=== PATIENT | female | born 1960 | race Caucasian/White ===

== ENCOUNTER 2017-06-08 06:14 | Inpatient (IN) ==
[~2017-06-08 06:14] MED LIST: Bacitracin 50,000 UNIT, Polymyxin B Sulfate 500,000 UNIT, Sodium Chloride IRRigation 1,... IR ONE
[2017-06-08] MEDS ORDERED: CeFAZolin Syr 2,000MG/20 ML 2,000 MG/20 ML SYRINGE IVPB ONE (06:29)
[2017-06-08] MEDS ORDERED: Lidocaine -MPF 2% 2 ML VIAL ONE (06:59)
[2017-06-08] MEDS ORDERED: Ondansetron 4 MG/2 ML VIAL ONE ×2 (06:59→10:43)
[2017-06-08] MEDS ORDERED: Dexamethasone 4 MG/ML VIAL ONE (06:59)
[2017-06-08] MEDS ORDERED: *HR* Phenylephrine 10 MG/ML VIAL ONE (06:59)
[2017-06-08] MEDS ORDERED: *HR* Succinylcholine 200 MG/10 ML VIAL IVP ONE (06:59)
[2017-06-08] MEDS ORDERED: Lidocaine -MPF 4% 5 ML AMPUL ONE (06:59)
[2017-06-08] MEDS ORDERED: *HR* Midazolam HCl 2 MG/2 ML VIAL ONE (07:02)
[2017-06-08] MEDS ORDERED: *HR* FentaNYL (PF) 100 MCG/2 ML VIAL ONE ×2 (07:02→11:07)
[2017-06-08] MEDS ORDERED: *HR* Remifentanil 2 MG VIAL IVP ONE (07:02)
[2017-06-08] MEDS ORDERED: *HR* Propofol 200 MG/20 ML VIAL IVP ONE (07:02)
[2017-06-08] MEDS ORDERED: Scopolamine Patch 1.5 MG PATCH.TD72 TD ONE (07:04)
[2017-06-08] MEDS ORDERED: Famotidine 20 MG/2 ML VIAL IVP ONE (07:04)
[2017-06-08] MEDS ORDERED: Pregabalin 75 MG CAPSULE PO ONE (07:05)
[2017-06-08] MEDS ORDERED: Acetaminophen IV 1,000 MG/100 ML INFUS..BTL IVPB ONE (07:05)
--- NOTE | 2017-06-08 07:08 | Anesthesia Evaluation PreOp ---
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 HX Other Medical History: Other (Rheumatoid Arthritis) Anesthesia History: No Prior Anesthetic Complications : No Alcohol Use: none Drug use: none Medications and Allergies Tylenol 12/13/16 [History] 3 Allergy/AdvReac Type Severity Reaction Status Date / Time No Known Allergies Allergy Verified 12/13/16 18:14 - Meds/Allergy Pre-op Review Medications Reviewed: Yes Allergies Reviewed: Yes Beta Blockers on Current Med List: No Anesthesia Results - Labs Laboratory Tests 06/02/17 06/02/17 06/02/17 08:15 08:15 08:15 Hgb 14.3 Hct 43.7 Plt Count 222 PT 9.7 INR 0.9 APTT 29.1 Sodium 139 Potassium 4.1 BUN 14 Creatinine 0.74 Anesthesia Exam O2 Sat Height 1.7 m Height 1.7 m Height 1.7 m Weight 83.915 kg Weight 83.915 kg Weight 83.915 kg O2 Sat by Pulse Oximetry 98 Vital Signs Temp Pulse Resp BP Pulse Ox 98.0 F 91 18 135/91 98 06/08/17 06:32 06/08/17 06:32 06/08/17 06:32 06/08/17 06:32 06/08/17 06:32 Height: 5'7 Weight: 185 lbs NPO (# of Hours): MN Pain Scale: 0 - HEENT Pupil (Motor): Pupils equal, EOMI Mallampati: II Denture Type: Upper: Complete Oral Opening: Greater than 3 - 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
[2017-06-08] MEDS ORDERED: Ringers Solution, Lactated 1,000 ML IVC SCH (07:15)
--- NOTE | 2017-06-08 08:17 | History & Physical Report ---
Date of Encounter: 06/08/17 Time of Encounter: 08:10 24 Hour HP Update - Instructions Instructions: If the History and Physical is less than 30 days old and was completed prior to A.M. admission and or procedure and has NOT been updated on calendar day of procedure please complete this update prior to performing procedure. - Update Patient reports changes in Medical Condition: No Changes in examination, assessment, or condition: No Changes in Medication: No Preop tests/diagnostics Reviewed: Yes Pre-Op MRSA Screen: Negative Surgery Remains Indicated: Yes Consent for Planned Operative Procedure(s) Verified: Yes - Pre-Operative Checklist Preoperative Checklist Indicated: No Prophylactic Antibiotic Ordered: Yes Home Medications Include Beta Manjeet: No Beta Manjeet Taken Today (Day of Surgery): No Beta Manjeet Taken Yesterday (Day Prior to Surgery): No Is VTE Prophylaxis Indicated?: Yes
[2017-06-08] MEDS ORDERED: *HR* Promethazine 25 MG/ML VIAL IVP PRN (08:24)
[2017-06-08] MEDS ORDERED: Dexamethasone 4 MG/ML VIAL IVP ONE (08:24)
[2017-06-08] MEDS ORDERED: Ondansetron 4 MG/2 ML VIAL IVP ONE (08:24)
[2017-06-08] MEDS ORDERED: *HR* Magnesium Sulfate 1 GM/2 ML VIAL ONE (10:31)
--- NOTE | 2017-06-08 11:07 | Orthopedic Operative Note ---
Date of procedure: 06/08/17 Pre-op diagnosis: Spondylolisthesis, lumbar stenosis Post-op diagnosis: same Operation/Findings: Posterior lumbar interbody fusion L4-L5: The patient successfully underwent general endotracheal anesthesia. The patient was given antibiotics prior to the start of the procedure. Compression boots and stockings were used for deep vein thrombosis prophylaxis. A Finney catheter was placed. Leads for neuro monitoring were placed on the upper and lower extremities. This included the cranium. The neuro monitoring personnel confirmed there were satisfactory readings prior to the start of the procedure. The patient was turned prone on the Kyel table. The back was prepped and draped in the usual sterile fashion. An incision was was marked and centered over the involved L4 and L5 levels in the mid line. The incision was deepened through the lumbar fascia. Bovie cautery and Carroll elevators were used to reflect the paraspinal musculature at the lateral extent of the transverse processes of the involved L4 and L5 levels. Diane clamps were placed over the L4 and L5 spinous processes. An intraoperative lateral fluoroscopy graft was obtained. A conversation was held between the surgeon and radiologist and both confirmed we had the correct operative levels. We then placed pedicle screws in standard fashion with the aid of fluoroscopy and anatomic landmarks. Briefly a starter awl was used. A gearshift was subsequently used to enter the rotor pilot hole via a transpedicular route into the vertebral body. The rotor pilot hole was tapped with an undersized instrument, and subsequently four 6.5 x 40 mm pedicle screws were placed bilaterally at the indicated L4 and L5 levels. The screws were tested with the aid of the neurologic monitoring staff via pedicle screw stimulation. All reading suggested there was no significant cortical wall breech. The screws were also evaluated fluoro- graphically and appeared to be in satisfactory position. We then turned our attention to the decompression portion of the procedure. We removed the supraspinous and interspinous ligaments and subsequently the insertion of the ligamentum flavum on the undersurface of the proximal L4 lamina was dislodged with a curette. We then removed the ligamentum flavum as well as undercut the L4-L5 facets at this level to decompress the lateral recesses. We also performed a L4 laminectomy. After the decompression, which was over and above that which was required to place the interbody graft, the foramen and traversing roots at this L4-L5 level were found to be free and patent. We also took part of the medial facet in order to aid in the decompression. We then protected the neural elements including the thecal sac and traversing nerve root on the right with a dural retractor. We made an annulotomy into the L4-L5 disc space and then removed entire disc material using Pituitary instruments. We trialed various size grafts after the endplates were prepared for graft insertion. A 10 x 26 enter body graft fit well within the L4-L5 disc space. We obtained some bone from the right posterior superior iliac spine through us a separate incision and combined with this with the bone which we had saved from the laminectomy portion of the procedure. This autograft bone was first placed in the anterior portion of the L4-L5 disc space and additional bone was placed within the interbody graft spacer. We then placed the interbody graft spacer obliquely across the L4-L5 disc space towards the midline while protecting the neural elements with a root retractor. When the graft was found to be in satisfactory position the steel floor pan placing supervisor was removed. We then copiously irrigated the wound. We then decorticated the L4 and L5 transverse processes as well as the facet joints of the involved L4-L5 levels to aid in the posterolateral fusion. We placed autograft bone in the lateral gutters over these regions. We then placed rods within the screw heads of the involved L4 and L5 levels and first locked the distal screws and then subsequently locked the proximal screws so as to improve and reduce the spondylolisthesis previously seen. We then closed the wound in layers with 1 Vicryl for the fascia, 2-0 Vicryl. Subcutaneous tissue, and Dermabond was used for skin closure. Sterile dressings were placed over the wound. The patient was turned supine on a hospital bed and extubated. All sponge instruments and needle counts were correct at the end of the procedure. The patient tolerated the procedure well without complications. Anesthesia: GETA Surgeon: Nick Urbina Jr Was there an acquisitions assistant present: No Estimated blood loss (cc): 150 Specimen: None Condition: stable Disposition: PACU
[2017-06-08] MEDS: *HR* HYDROmorphone (PF) 1 MG/ML SYRINGE IVP PRN ×4 (11:17→11:38)
[2017-06-08] MEDS: *HR* Labetalol 20 MG/4 ML SYRINGE IVP PRN ×2 (11:20→11:41)
[2017-06-08] MEDS: *HR* Morphine 2 MG/ML SYRINGE IVP PRN ×2 (12:05→12:15)
--- NOTE | 2017-06-08 12:36 | Anesthesia Evaluation Post Op ---
Date of Encounter: 06/08/17 Time of Encounter: 12:35 - Vital Signs Vital Signs: Vital Signs/O2 Sat/Glucose, Most Current Temp Pulse Resp BP Pulse Ox 06/08/17 12:31 95 16 130/79 95 06/08/17 12:21 94 18 129/78 94 06/08/17 12:11 98 F 95 14 123/75 95 06/08/17 12:01 94 14 137/92 95 06/08/17 11:51 91 14 125/81 95 06/08/17 11:41 98.2 F 93 20 166/114 96 06/08/17 11:31 98 20 160/119 97 06/08/17 11:21 117 20 178/98 100 06/08/17 11:11 98.3 F 115 20 156/118 100 - Lungs Lungs: Clear Ascult./Percussion - Airway Airway: Non-obstructed - Cardiovascular Regular Rate - Mental Status Mental Status: Alert & Oriented, Answers Appropriately - Pain Pain Scale: 4 - Nausea Vomiting Nausea Vomiting: Not Present - Hydration Hydration: Ice chips - Discharge PostOp Status: Transfer Patient to floor
[2017-06-08] MEDS ORDERED: Naloxone 0.4 MG/ML INJ IVP PRN (12:51)
[2017-06-08] MEDS ORDERED: Acetaminophen 325 MG TABLET PO PRN (12:51)
[2017-06-08] MEDS ORDERED: *HR* HYDROcodone/Acet 5/325 mg TABLET PO PRN (12:51)
[2017-06-08] MEDS: Ringers Solution, Lactated 1,000 ML IVC SCH ×2 (13:27→23:50)
[2017-06-08] MEDS: *HR* OxyCODONE Immed Rel 5 MG TABLET PO PRN ×3 (13:27→23:49)
[2017-06-08] MEDS: Ondansetron 4 MG/2 ML VIAL IVP PRN (14:36)
[2017-06-08] MEDS: ceFAZolin 2,000 MG in 0.9 % Sodium Chloride 100 ML IVPB SCH ×2 (15:42→23:51)
[2017-06-08] MEDS ORDERED: *HR* OxyCODONE Immed Rel 5 MG TABLET PO ONE (18:22)
[2017-06-08] MEDS: *HR* Promethazine 25 MG/ML VIAL IVP PRN (18:33)
[2017-06-09] MEDS: *HR* Promethazine 25 MG/ML VIAL IVP PRN (00:06)
[2017-06-09] MEDS: Ondansetron 4 MG/2 ML VIAL IVP PRN (04:37)
[2017-06-09] MEDS: (Biotin [Mega Biotin] 10,000 MCG) PO SCH (08:52)
[2017-06-09] MEDS: GREEN COFFEE BEAN PO SCH (08:52)
--- NOTE | 2017-06-09 08:55 | Orthopedics Progress Note ---
Date of Encounter: 06/09/17 Time of Encounter: 08:35 - Assessment and Plan (1) Lumbar stenosis Current Visit: Yes Status: Chronic Qualifiers: Neurogenic claudication status: unspecified Qualified Code(s): M48.061 - Spinal stenosis, lumbar region without neurogenic claudication (2) Spondylolisthesis Current Visit: Yes Status: Chronic Qualifiers: Spinal region: lumbar Qualified Code(s): M43.16 - Spondylolisthesis, lumbar region (3) Status post lumbar spinal fusion Current Visit: Yes Status: Acute Subjective Principal diagnosis: Spondylolisthesis, lumbar stenosis Interval history: POD #1 06/08/17 Posterior lumbar interbody fusion L4-L5 for Spondylolisthesis, lumbar stenosis Dr. Urbina The patient is without complaints. Afebrile vital signs are stable. Incision is clean dry and intact. Neurovascularly intact with regard to bilateral lower extremities. Fires all upper and lower extremity motor groups. Assessment :stable Plan: Continue postoperative care, mobilize - in LSO brace, continue analgesics as needed, discharge planning, radiographs from DOS satisfactory, pending repeat xray. Objective Vital signs: Vital Signs Temp Pulse Resp BP Pulse Ox 06/09/17 06:57 98.6 F 83 18 120/81 94 06/09/17 02:43 98.4 F 90 18 131/84 98 06/09/17 00:08 98.7 F 62 18 119/76 93 06/08/17 20:20 93 06/08/17 19:09 98.4 F 87 18 132/85 94 06/08/17 15:18 98.1 F 88 18 143/91 94 06/08/17 14:34 97.7 F 85 144/96 96 06/08/17 13:29 97.6 F 94 16 124/81 95 06/08/17 12:56 97.6 F 91 132/85 96 06/08/17 12:54 92 06/08/17 12:31 95 16 130/79 95 06/08/17 12:21 94 18 129/78 94 06/08/17 12:11 98 F 95 14 123/75 95 06/08/17 12:01 94 14 137/92 95 06/08/17 11:51 91 14 125/81 95 06/08/17 11:41 98.2 F 93 20 166/114 96 06/08/17 11:31 98 20 160/119 97 06/08/17 11:21 117 20 178/98 100 06/08/17 11:11 98.3 F 115 20 156/118 100 Intake and Output 06/08/17 06/09/17 06/09/17 23:59 07:59 15:59 Intake Total 1450 / 1450 240 / 240 Output Total 500 / 500 775 / 775 Balance 950 / 950 -535 / -535 Intake: IV Fluids 1100 / 1100 Lactated Ringers 1,000 ML @ 100 1000 / 1000 mls/hr IVC .Q10H BEA Rx#: [id number] Ancef 2,000 MG In 0.9 % Sodium 100 / 100 Chloride 100 ML @ 200 mls/hr IVPB Q8HR BEA Rx#:[id number] Oral 350 / 350 240 / 240 Output: Emesis 200 / 200 50 / 50 Catheter 300 / 300 725 / 725 - VTE Documentation of Mechanical Device: Intermittent pneumatic compression device Consult Discharge Plan - Plan Referrals: Arpit Nuñez DO [Primary Care Provider] - Jeffrey Snow [Family Provider] - Darcie Young, PAC [Physician Employee Relations Administrator] - 06/21/17 1:30 pm
[2017-06-09] MEDS: *HR* OxyCODONE Immed Rel 5 MG TABLET PO PRN ×3 (09:19→21:00)
[2017-06-10] MEDS: *HR* OxyCODONE Immed Rel 5 MG TABLET PO PRN ×3 (01:15→11:17)
[2017-06-10] MEDS: GREEN COFFEE BEAN PO SCH (08:08)
[2017-06-10] MEDS: (Biotin [Mega Biotin] 10,000 MCG) PO SCH (08:08)
[2017-06-10 11:11] VITALS: BP 136/85
--- NOTE | 2017-06-10 12:19 | Discharge Summary ---
Orders not resulted at time of discharge: Pending orders 06/08/17 09:00 XR fluoroscopy <1 hr [XR] Routine Date of Encounter: 06/10/17 Time of Encounter: 12:00 - Discharge Diagnosis (1) Lumbar stenosis Priority: Primary Status: Chronic Qualifiers: Neurogenic claudication status: unspecified Qualified Code(s): M48.061 - Spinal stenosis, lumbar region without neurogenic claudication (2) Spondylolisthesis Priority: Primary Status: Chronic Qualifiers: Spinal region: lumbar Qualified Code(s): M43.16 - Spondylolisthesis, lumbar region (3) Status post lumbar spinal fusion Priority: Primary Status: Acute - Hospital Course Hospital course: Ms. De Los Santos is a 56 year old female s/p Posterior lumbar interbody fusion L4-L5 06/08/17 Dr. Urbina for Spondylolisthesis, lumbar stenosis The patient had an uneventful postoperative course. Progressed from intravenous analgesic needs to oral analgesic needs only. Remained neurovascularly intact and mobilized satisfactorily. All intraoperative and/or postoperative radiographic studies were satisfactory. Patient is discharged with plan for rehabilitation and follow-up in 2 weeks post discharge on analgesic medication and patient's home medications. - Time Spent with Patient Total time spent providing and/or coordinating discharge services: Less than 30 minutes - Discharge Medications Prescriptions: HYDROcodone/Acet 5/325 mg [[place] 5-325 mg] 1 tab PO Q4HR PRN 7 Days #42 tablet PRN Reason: Severe Pain Promethazine [Phenergan] 25 mg PO Q6HR PRN 7 Days #28 tablet PRN Reason: Nausea And Vomiting Cyclobenzaprine HCl 5 mg PO Q8H PRN 7 Days #21 tablet PRN Reason: Muscle Spasm Home Medications: Biotin [Toni Biotin] 10,000 mcg PO DAILY 06/08/17 [History] Coffee Extract [Green Coffee Rosado] 400 mg PO DAILY 06/08/17 [History] Cyclobenzaprine HCl 5 mg PO Q8H PRN 7 Days #21 tablet 06/10/17 [Rx] HYDROcodone/Acet 5/325 mg [[place] 5-325 mg] 1 tab PO Q4HR PRN 7 Days #42 tablet 06/10/17 [Rx] Promethazine [Phenergan] 25 mg PO Q6HR PRN 7 Days #28 tablet 06/10/17 [Rx] Allergies/Adverse Reactions: 3 Allergy/AdvReac Type Severity Reaction Status Date / Time aspirin AdvReac Vomiting Verified 06/08/17 07:12 duloxetine [From Cymbalta] AdvReac Vomiting Verified 06/08/17 07:12 Date of admission: 06/08/17 12:36 Primary care physician: Arpit Nuñez DO Consults: 06/08/17 12:51 Consult to Physical Therapy [CONS] Routine Comment: Evaluate, develop and implement POC Reason for Consult: Postoperative rehabilitation Does patient have active BEDREST order?: No Is patient medically & hemodynamically stable?: Yes Patient assessed for mobility or mobilized this visit?: No Consult to Spine Navigator [CONS] [CONS] Routine - VTE Documentation of Mechanical Device: Intermittent pneumatic compression device - Impressions ITS Impressions Lumbar Spine X-Ray 06/08/17 09:00 IMPRESSION: Single-view demonstrating posterior fusion from L4-L5 with unchanged alignment and no definite evidence hardware complication. D/ / Mark Edward MD / Mark Edward MD Interpreting Provider: Mark Edward MD Lumbar Spine X-Ray 06/10/17 08:10 IMPRESSION: Uncomplicated posterior lumbar fusion at L4-L5. Stable mild diffuse degenerative disc disease. D/ / 06/10/2017 11:06:36 Ty Quiroz MD / jamil Interpreting Provider: Ty Quiroz MD - Patient Status Disposition: Home, Self-Care Condition: Good Functional capacity at discharge: uses cane/walker Overall status at discharge: patient is progressing back to baseline - Discharge Instructions Follow Up With: Darcie Young PAC [Physician Disc Pad Plate Filler] - 06/21/17 1:30 pm Arpit Nuñez DO [Primary Care Provider] - Jeffrey Snow [Family Provider] - Additional Instructions: Discharge Instructions: Lumbar Please call [facility] ([phone]), your Primary Care Physician, or report to the ER if you have any of the following symptoms: Fever greater that 101.5, increased pain/redness/drainage/odor for your incision site or any other concerning symptoms. ACTIVITY * May Shower * No Tub Baths * No lifting greater than 10 pounds * No Smoking * No Swimming * No off Ground Activities (Running, Climbing, Ladders, Horseback Riding) * No Driving * Wear Back Brace when up walking if lumbar fusion done MEDICATIONS: Upon discharge resume your home medications. Take all the medications as prescribed. Take a stool softener if taking narcotic pain medications. Stool softeners are only effective if you drink enough fluids. Drink 6-8 glass of water or fluids a day, unless this is not allowed for another health problem. Despite using stool softeners, if you haven't had a bowel movement in 3 days, please switch to a gentle laxative. Gentle laxatives are sold over the counter. You should have a bowel movement within 24 hours, if not call the office. You will be discharged from the hospital with a prescription for pain medication. You are encouraged to decrease the use of narcotic pain medication as tolerated. Should you require a refill, please call the office. It is best to call 48-72 hours in advance of needing a prescription refill so you don't run out of medication. WOUND CARE: Remove Dressing Tomorrow. Leave incision open to air. Pat dry when you get out of the shower. FOLLOW-UP: Please follow up with your surgeon in the orthopedic clinic in 2 weeks from the day of surgery. References: [employer] ([email or web address]) - Diet and Activity Activity: as per physical therapy Diet: advance to your usual diet
[2017-06-10] MEDS: Ondansetron 4 MG/2 ML VIAL IVP PRN (13:05)
== END 2017-06-10 15:08 | disposition home or self-care (01) | DRG 460 ==
LOC: SAMDAY 06:14 → 3NENU 12:36
PROVIDERS: ADMIT Orthopaedic Surgery Orthopaedic Surgery of the Spine; ATTEND Orthopaedic Surgery Orthopaedic Surgery of the Spine